=== PATIENT | female | born 1970 | race Caucasian/White ===

== ENCOUNTER 2018-08-26 06:15 | Day surgery (SDC) | payer BC ==
[~2018-08-26] VITALS: Ht 162.6 cm; Wt 74.4 kg
[2018-08-26] MEDS ORDERED: CONJUGATED ESTROGENS VAGINAL CREAM 42.5 GM .APPL VG ONE (06:16)
[2018-08-26] MEDS ORDERED: MIDAZOLAM HCL 5 MG/5 ML VIAL IVP ONE (06:16)
[2018-08-26] MEDS ORDERED: KETOROLAC TROMETHAMINE 30 MG VIAL IVP ONE ×2 (06:16→14:00)
[2018-08-26] MEDS ORDERED: ONDANSETRON HCL 4 MG/2 ML VIAL IVP ONE (06:16)
[2018-08-26] MEDS ORDERED: LR 1,000 ML IV.SOLN IV ONE (06:16)
[2018-08-26] MEDS ORDERED: fentaNYL CITRATE/PF 100 MCG/2 ML AMP IVP ONE (06:16)
[2018-08-26] MEDS ORDERED: BUPIVACAINE /EPINEPHRINE/PF 0.5% 30 ML VIAL INJ ONE (06:16)
[2018-08-26] MEDS ORDERED: SEVOFLURANE 15 MIN GAS INH ONE (06:16)
[2018-08-26] MEDS ORDERED: BUPIVACAINE /EPINEPHRINE/PF 0.25% 30 ML VIAL INJ ONE (06:16)
[2018-08-26] MEDS ORDERED: POLYMYXIN 500,000/BACIT.10,000 UNITS in NS IRR 1 L IR ONE (07:25)
[2018-08-26] MEDS ORDERED: fentaNYL CITRATE/PF 100 MCG/2 ML AMP IVP PRN ×2 (09:00)
[2018-08-26] MEDS ORDERED: ONDANSETRON HCL 4 MG/2 ML VIAL IVP PRN ×2 (09:00→10:00)
[2018-08-26] MEDS ORDERED: KETOROLAC TROMETHAMINE 30 MG VIAL IVP PRN (09:00)
[2018-08-26] MEDS ORDERED: OXYCODONE/ACETAMINOPHEN 5-325 TABLET ONE ×2 (10:46→15:52)
[2018-08-26] MEDS ORDERED: HYDROcodone/ACETAMIN 5-325 MG TAB (NORCO/ VICODIN) PO PRN (11:00)
[2018-08-26] MEDS ORDERED: OXYCODONE/ACETAMINOPHEN 5-325 TABLET PO PRN ×2 (11:00)
[2018-08-26 12:32] VITALS: BP_SYST 126
[2018-08-26] MEDS ORDERED: KETOROLAC TROMETHAMINE 30 MG VIAL ONE (13:06)
[2018-08-26] MEDS ORDERED: CEFAZOLIN 1 GM IVPB PREMIX 50 ML IV ONE (15:00)
== END 2018-08-26 16:30 | disposition home or self-care (01) ==
LOC: SDS 06:15 → SMU 06:15 → SDS 16:30
PROVIDERS: ATTEND Specialist
DX: N81.10 Cystocele, unspecified (principal); N81.6 Rectocele; Z79.899 Other long term (current) drug therapy; K21.9 Gastro-esophageal reflux disease without esophagitis; F32.9 Major depressive disorder, single episode, unspecified
CPT/HCPCS: 57260; 88305; J0690; J1885; J2250; J2405; J3010; J3490 ×2; J7120